=== PATIENT | male | born 1990 | race Caucasian/White ===

== ENCOUNTER 2019-09-14 19:17 | Emergency (ER) | payer OTHER ==
[~2019-09-14] VITALS: Ht 177.8 cm; Wt 80.3 kg
[2019-09-14 19:39] VITALS: Ht 177.8 cm; Wt 80.3 kg
[2019-09-14 21:32] VITALS: BP 116/77
== END 2019-09-14 21:32 | disposition home or self-care (01) ==
LOC: ED 19:17
DX: R09.1 Pleurisy (principal)